=== PATIENT | female | born 1970 | race Caucasian/White ===

== ENCOUNTER 2017-10-25 06:54 | Day surgery (SDC) | payer OTHER ==
[2017-10-25] MEDS: SOD CHLORIDE 0.9% 1,000 ML IV (11:27)
[2017-10-25] MEDS ORDERED: PROPOFOL 20 ML (11:38)
[2017-10-25] MEDS ORDERED: MIDAZOLAM 1 MG/ML 2 ML INJ (11:38)
[2017-10-25] MEDS ORDERED: ONDANSETRON 4 MG INJ (11:38)
[2017-10-25] MEDS ORDERED: METOCLOPRAMIDE 10 MG INJ (11:40)
[2017-10-25] MEDS ORDERED: CEFAZOLIN 1 GM INJ (11:42)
[2017-10-25] MEDS ORDERED: FENTAnyl 50 MCG/ML VIAL (11:42)
[2017-10-25] MEDS ORDERED: DIPHENHYDRAMINE 50 MG INJ IV (12:00)
[2017-10-25] MEDS ORDERED: OXYCODONE/ACETAMINOPHEN (5/325) TAB PO ×2 (12:00)
[2017-10-25] MEDS ORDERED: HYDROmorphONE 1 MG/5 ML IV SYRINGE IV ×2 (12:00)
[2017-10-25] MEDS ORDERED: MEPERIDINE 25 MG INJ IV (12:00)
[2017-10-25] MEDS: BUPIVACAINE 0.25% (MPF) 30 ML INJ (12:13)
[2017-10-25] MEDS ORDERED: IBUPROFEN 800 MG TAB PO (12:30)
[2017-10-25] MEDS: ONDANSETRON 4 MG INJ IV (12:44)
[2017-10-25] MEDS: HYDROmorphONE 1 MG/5 ML IV SYRINGE IV ×2 (12:44→13:00)
== END 2017-10-25 14:00 | disposition home or self-care (01) ==
LOC: SDS 06:54
DX: C81.0 Nodular lymphocyte predominant Hodgkin lymphoma (principal); J45.909 Unspecified asthma, uncomplicated
CPT/HCPCS: 14021; 88307; 88341; 88342

== ENCOUNTER 2017-12-19 07:12 | Day surgery (SDC) | payer OTHER ==
[2017-12-19] MEDS: CEFAZOLIN 1 GM/50 ML (PMX) 50 ML IVPB ×2 (09:38→10:45)
[2017-12-19] MEDS: LIDOCAINE 1% (MPF) 5 ML VIAL (10:20)
[2017-12-19] MEDS: LIDOCAINE 1%/EPI 30 ML INJ (10:30)
[2017-12-19] MEDS: MIDAZOLAM 1 MG/ML 2 ML INJ ×2 (10:30→10:40)
[2017-12-19] MEDS: ONDANSETRON 4 MG INJ (10:30)
[2017-12-19] MEDS: SOD CHLORIDE 0.9% 1,000 ML IV (10:30)
[2017-12-19] MEDS: FENTAnyl 50 MCG/ML VIAL ×3 (10:30→11:50)
[2017-12-19] MEDS: HEPARIN 1000 UNITS/ML 10 ML INJ (11:00)
[2017-12-19] MEDS: POLYMYXIN/BACITRACIN 1L IRRIG IRR (11:30)
== END 2017-12-19 14:55 | disposition home or self-care (01) ==
LOC: SDS 07:12
DX: C81.95 Hodgkin lymphoma, unspecified, lymph nodes of inguinal region and lower limb (principal)
CPT/HCPCS: 36561; 76942; 77012; 88305; 88311; 88313; 93306

== ENCOUNTER 2018-01-25 11:35 | Inpatient (IN) | payer OTHER, MEDICAID ==
[2018-01-25] MEDS: SODIUM CHLORIDE 0.9% 1L BAG IV* (12:30)
[2018-01-25] MEDS: ACETAMINOPHEN 325 MG TAB PO (12:31)
[2018-01-25] MEDS: ONDANSETRON 4 MG INJ IV (12:35)
[2018-01-25 12:39] LABS: WHITE BLOOD COUNT 1.9 10^3/ul (4.8-10.8)
[2018-01-25 12:39] LABS: ABNORMAL IP MESSAGE 1; HEMATOCRIT 35.7 % (37.0-47.0); HEMOGLOBIN 12.1 g/dl (12.0-16.0); MEAN CORPUSCULAR HEMOGLOBIN 28.7 pg (29.0-33.0); MEAN CORPUSCULAR HGB CONC 33.9 g/dl (32.0-37.0); MEAN CORPUSCULAR VOLUME 84.6 fl (82.0-101.0); MEAN PLATELET VOLUME 10.1 fl (7.4-10.4); NUCLEATED RED BLOOD CELLS% 2.1 /100WBC (0.0-0.0); PLATELET COUNT 422 10^3/UL (140-415); RED BLOOD COUNT 4.22 10^6/ul (4.20-5.40); RED CELL DISTRIBUTION WIDTH 12.7 % (11.5-14.5)
[2018-01-25 12:41] LABS: ADD MAN DIFF? YES; POSITIVE DIFF @See below
[2018-01-25 13:00] LABS: ALANINE AMINOTRANSFERASE 143 IU/L (13-69); ALBUMIN 3.2 g/dl (3.3-4.9); ALBUMIN/GLOBULIN RATIO 1.03; ALKALINE PHOSPHATASE 81 IU/L (42-121); ANION GAP 13 (8-16); ASPARTATE AMINO TRANSFERASE 72 IU/L (15-46); BILIRUBIN,INDIRECT 0.5 mg/dl (0-1.1); BILIRUBIN,TOTAL 0.5 mg/dl (0.2-1.3); BLOOD UREA NITROGEN 2 mg/dl (7-20); CALCIUM 8.7 mg/dl (8.4-10.2); CARBON DIOXIDE 28 mmol/L (21-31); CHLORIDE 99 mmol/L (97-110); CREATININE 0.55 mg/dl (0.44-1.00); GLUCOSE 209 mg/dl (70-220); SODIUM 137 mmol/L (135-144); TOTAL PROTEIN 6.3 g/dl (6.1-8.1)
[2018-01-25 13:04] LABS: LACTIC ACID 3.4 mmol/L (0.5-2.0)
[2018-01-25 13:11] LABS: TROPONIN-I < 0.012 ng/ml (0.000-0.120)
[2018-01-25 13:24] LABS: BASOPHILS % (M) 2 % (0-2); EOSINOPHILS % (M) 3 % (0-7); ERYTHROBLAST% (NRBC) (M) 5 % (0-0); GIANT THROMBO% (M) 3 % (0-0); LYMPHOCYTES #M 1.2 10^3/ul (0.8-2.9); LYMPHOCYTES % (M) 65 % (15-51); MONOCYTE #M 0.1 10^3/ul (0.3-0.9); MONOCYTES % (M) 9 % (0-11); OVALOCYTES 1+ (0-0); PLATELET ESTIMATE NORMAL; POIKILOCYTOSIS 1+ (0-0); POLYCHROMASIA 1+ (0-0); REACTIVE LYMPHOCYTES #M 0.3 10^3/ul (0.0-0.0); REACTIVE LYMPHOCYTES% (M) 18 % (0-0); SEGMENTED NEUTROPHILS (M) % 3 % (39-77); SMUDGE%M 16 % (0-0)
[2018-01-25] MEDS: CEFEPIME 2GM/50 ML (PMX) 50 ML IVPB ×2 (13:30→23:56)
[2018-01-25 13:46] LABS: INR 1.05; PROTIME 13.8 Sec (11.9-14.9); PT RATIO 1.1
[2018-01-25 13:47] LABS: PARTIAL THROMBOPLASTIN TIME 26.3 Sec (23.0-35.0)
[2018-01-25 14:15] LABS: LACTIC ACID 2.7 mmol/L (0.5-2.0)
[2018-01-25] MEDS: VANCOMYCIN 1 GM (PMX) 250 ML IVPB (14:30)
[2018-01-25] MEDS ORDERED: HYDROCODONE/APAP (5/325) TAB PO (17:00)
[2018-01-25] MEDS ORDERED: ONDANSETRON 4 MG INJ IV (17:00)
[2018-01-25] MEDS ORDERED: MAGNESIUM HYDROXIDE 30ML CUP PO (17:00)
[2018-01-25] MEDS ORDERED: VANCOMYCIN IV PER PHARMACY XX (17:00)
[2018-01-25] MEDS ORDERED: DOCUSATE SODIUM 100 MG CAP PO (17:00)
[2018-01-25] MEDS ORDERED: NACL 0.9% 3 ML SYG IV (17:00)
[2018-01-25] MEDS ORDERED: morphine 2 MG INJ IV (17:00)
[2018-01-25] MEDS ORDERED: ZOLPIDEM 5 MG TAB PO (17:00)
[2018-01-25] MEDS: POTASSIUM CHLORIDE 40 MEQ in SOD CHLORIDE 0.9% 1,000 ML IV (18:11)
[2018-01-25 19:01] LABS: LACTIC ACID 2.2 mmol/L (0.5-2.0)
[2018-01-25] MEDS: VANCOMYCIN 1.5 GM in SOD CHLORIDE 0.9% 250 ML IVPB (20:25)
[2018-01-25] MEDS: FILGRASTIM 300 MCG INJ SC (21:42)
[2018-01-26] MEDS: POTASSIUM CHLORIDE 40 MEQ in SOD CHLORIDE 0.9% 1,000 ML IV ×4 (00:37→17:32)
[2018-01-26] MEDS: LIDOCAINE 2% VISC 15 ML CUP PO ×2 (02:16→12:03)
[2018-01-26] MEDS: ACETAMINOPHEN 325 MG TAB PO (02:16)
[2018-01-26 05:31] LABS: WHITE BLOOD COUNT 2.5 10^3/ul (4.8-10.8)
[2018-01-26 05:32] LABS: ABNORMAL IP MESSAGE 1; HEMOGLOBIN 10.3 g/dl (12.0-16.0); MEAN CORPUSCULAR HEMOGLOBIN 29.4 pg (29.0-33.0); MEAN CORPUSCULAR HGB CONC 34.3 g/dl (32.0-37.0); MEAN CORPUSCULAR VOLUME 85.7 fl (82.0-101.0); MEAN PLATELET VOLUME 10.1 fl (7.4-10.4); NUCLEATED RED BLOOD CELLS% 4.1 /100WBC (0.0-0.0); PLATELET COUNT 388 10^3/UL (140-415); RED CELL DISTRIBUTION WIDTH 13.3 % (11.5-14.5)
[2018-01-26 05:38] LABS: POSITIVE DIFF @See below
[2018-01-26 05:39] LABS: ADD MAN DIFF? YES
[2018-01-26 05:54] LABS: ANION GAP 9 (8-16); BLOOD UREA NITROGEN 2 mg/dl (7-20); CARBON DIOXIDE 27 mmol/L (21-31); CHLORIDE 105 mmol/L (97-110); CREATININE 0.52 mg/dl (0.44-1.00); GLUCOSE 143 mg/dl (70-220); MAGNESIUM 1.6 mg/dl (1.7-2.5); PHOSPHORUS 2.4 mg/dl (2.5-4.9); POTASSIUM 3.1 mmol/L (3.5-5.1); SODIUM 138 mmol/L (135-144)
[2018-01-26 07:13] LABS: HEMOGLOBIN A1C 6.5 % (0-5.9)
[2018-01-26 07:21] LABS: BASOPHIL #M 0.1 10^3/ul (0.0-0.0); BASOPHILS % (M) 5 % (0-2); EOSINOPHILS % (M) 2 % (0-7); ERYTHROBLAST% (NRBC) (M) 9 % (0-0); LYMPHOCYTES #M 2.2 10^3/ul (0.8-2.9); LYMPHOCYTES % (M) 91 % (15-51); PLATELET ESTIMATE NORMAL; SEGMENTED NEUTROPHILS (M) % 2 % (39-77)
[2018-01-26] MEDS: VANCOMYCIN 1.5 GM in SOD CHLORIDE 0.9% 250 ML IVPB ×2 (09:18→22:23)
[2018-01-26] MEDS: CEFEPIME 2GM/50 ML (PMX) 50 ML IVPB ×2 (09:18→20:49)
[2018-01-26] MEDS: FILGRASTIM 300 MCG INJ SC (17:25)
[2018-01-27] MEDS: ACETAMINOPHEN 325 MG TAB PO (00:27)
[2018-01-27] MEDS: POTASSIUM CHLORIDE 40 MEQ in SOD CHLORIDE 0.9% 1,000 ML IV ×4 (01:00→20:20)
[2018-01-27 08:29] LABS: VANCOMYCIN,TROUGH 9.5 ug/ml (10.0-20.0)
[2018-01-27] MEDS: CEFEPIME 2GM/50 ML (PMX) 50 ML IVPB (09:02)
[2018-01-27] MEDS: VANCOMYCIN 1.5 GM in SOD CHLORIDE 0.9% 250 ML IVPB (09:54)
[2018-01-27 14:15] LABS: WHITE BLOOD COUNT 6.9 10^3/ul (4.8-10.8)
[2018-01-27 14:16] LABS: ABNORMAL IP MESSAGE 1; HEMATOCRIT 33.3 % (37.0-47.0); HEMOGLOBIN 10.9 g/dl (12.0-16.0); MEAN CORPUSCULAR HEMOGLOBIN 28.5 pg (29.0-33.0); MEAN CORPUSCULAR HGB CONC 32.7 g/dl (32.0-37.0); MEAN CORPUSCULAR VOLUME 86.9 fl (82.0-101.0); MEAN PLATELET VOLUME 9.8 fl (7.4-10.4); NUCLEATED RED BLOOD CELLS% 3.5 /100WBC (0.0-0.0); PLATELET COUNT 357 10^3/UL (140-415); RED BLOOD COUNT 3.83 10^6/ul (4.20-5.40)
[2018-01-27 14:21] LABS: ADD MAN DIFF? YES; POSITIVE DIFF @See below
[2018-01-27 14:36] LABS: ANION GAP 7 (8-16); CARBON DIOXIDE 27 mmol/L (21-31); CHLORIDE 107 mmol/L (97-110); CREATININE 0.44 mg/dl (0.44-1.00); GLUCOSE 173 mg/dl (70-220); MAGNESIUM 1.5 mg/dl (1.7-2.5); PHOSPHORUS 1.7 mg/dl (2.5-4.9); POTASSIUM 3.7 mmol/L (3.5-5.1); SODIUM 137 mmol/L (135-144)
[2018-01-27 14:40] LABS: BLOOD UREA NITROGEN < 2 mg/dl (7-20)
[2018-01-27 15:06] LABS: ANISOCYTOSIS 1+ (0-0); BAND NEUTROPHILS #M 1.6 10^3/ul (0.0-0.6); BAND NEUTROPHILS % (M) 24 % (0-4); BASOPHILS % (M) 1 % (0-2); ERYTHROBLAST% (NRBC) (M) 6 % (0-0); LYMPHOCYTES #M 2.6 10^3/ul (0.8-2.9); LYMPHOCYTES % (M) 39 % (15-51); METAMYELOCYTES %M 1 % (0-0); MICROCYTOSIS 1+ (0-0); MONOCYTES % (M) 15 % (0-11); MYELOCYTES #M 0.2 10^3/ul (0.0-0.0); MYELOCYTES % (M) 4 % (0-0); PLATELET ESTIMATE NORMAL; REACTIVE LYMPHOCYTES #M 0.2 10^3/ul (0.0-0.0); REACTIVE LYMPHOCYTES% (M) 3 % (0-0); SEGMENTED NEUTROPHILS (M) % 13 % (39-77); SMUDGE%M 28 % (0-0)
[2018-01-27] MEDS: POTASSIUM PHOSPHATE 40 MEQ in SOD CHLORIDE 0.9% 250 ML IVPB (16:17)
[2018-01-27] MEDS: VANCOMYCIN 1.25 GM in SOD CHLORIDE 0.9% 250 ML IVPB (17:28)
[2018-01-27] MEDS: FILGRASTIM 300 MCG INJ SC (17:37)
[2018-01-27 18:54] LABS: LACTIC ACID 2.3 mmol/L (0.5-2.0)
[2018-01-27] MEDS: MAGNESIUM SULFATE 2 GM/50 ML 50 ML IVPB (20:20)
[2018-01-28 01:18] LABS: LACTIC ACID 2.5 mmol/L (0.5-2.0)
[2018-01-28] MEDS: VANCOMYCIN 1.25 GM in SOD CHLORIDE 0.9% 250 ML IVPB ×3 (02:31→17:04)
[2018-01-28] MEDS: POTASSIUM CHLORIDE 40 MEQ in SOD CHLORIDE 0.9% 1,000 ML IV ×3 (04:04→22:20)
[2018-01-28] MEDS ORDERED: VITAMIN A & D 5 GM OINT PACKET TOP (04:14)
[2018-01-28 05:44] LABS: ABNORMAL IP MESSAGE 1; HEMATOCRIT 32.6 % (37.0-47.0); HEMOGLOBIN 10.7 g/dl (12.0-16.0); MEAN CORPUSCULAR HGB CONC 32.8 g/dl (32.0-37.0); MEAN CORPUSCULAR VOLUME 88.3 fl (82.0-101.0); MEAN PLATELET VOLUME 10.1 fl (7.4-10.4); PLATELET COUNT 346 10^3/UL (140-415); RED BLOOD COUNT 3.69 10^6/ul (4.20-5.40); RED CELL DISTRIBUTION WIDTH 14.3 % (11.5-14.5)
[2018-01-28 05:44] LABS: WHITE BLOOD COUNT 15.3 10^3/ul (4.8-10.8)
[2018-01-28 06:01] LABS: ANION GAP 9 (8-16); CALCIUM 7.9 mg/dl (8.4-10.2); CARBON DIOXIDE 26 mmol/L (21-31); CHLORIDE 107 mmol/L (97-110); CREATININE 0.45 mg/dl (0.44-1.00); GLUCOSE 114 mg/dl (70-220); POTASSIUM 3.8 mmol/L (3.5-5.1); SODIUM 138 mmol/L (135-144)
[2018-01-28 06:02] LABS: POSITIVE DIFF @See below
[2018-01-28 06:02] LABS: PHOSPHORUS 2.6 mg/dl (2.5-4.9)
[2018-01-28 06:03] LABS: ADD MAN DIFF? YES; BLOOD UREA NITROGEN < 2 mg/dl (7-20)
[2018-01-28 06:06] LABS: LACTIC ACID 3.1 mmol/L (0.5-2.0)
[2018-01-28 07:42] LABS: ANISOCYTOSIS 1+ (0-0); BAND NEUTROPHILS #M 4.8 10^3/ul (0.0-0.6); BAND NEUTROPHILS % (M) 32 % (0-4); ERYTHROBLAST% (NRBC) (M) 5 % (0-0); GIANT THROMBO% (M) 1 % (0-0); LYMPHOCYTES % (M) 20 % (15-51); METAMYELOCYTES #M 0.7 10^3/ul (0.0-0.0); METAMYELOCYTES %M 5 % (0-0); MONOCYTE #M 1.2 10^3/ul (0.3-0.9); MONOCYTES % (M) 8 % (0-11); MYELOCYTES #M 0.6 10^3/ul (0.0-0.0); MYELOCYTES % (M) 4 % (0-0); PLATELET ESTIMATE NORMAL; POIKILOCYTOSIS 1+ (0-0); PROMYELOCYTES #M 0.3 10^3/ul (0-0); PROMYELOCYTES % (M) 2 % (0-0); SEG NEUT #M 5.2 10^3/ul (1.6-7.5); SEGMENTED NEUTROPHILS (M) % 29 % (39-77); SMUDGE%M 20 % (0-0)
[2018-01-28] MEDS: CEFEPIME 2GM/50 ML (PMX) 50 ML IVPB ×3 (09:26→20:20)
[2018-01-28 13:15] LABS: LACTIC ACID 3.1 mmol/L (0.5-2.0)
[2018-01-28 14:36] LABS: ADD UMIC YES; UR ASCORBIC ACID NEGATIVE (NEGATIVE); UR BILIRUBIN (Dip) NEGATIVE (NEGATIVE); UR BLOOD (Dip) NEGATIVE (NEGATIVE); UR CLARITY SLIGHTLY CLOUDY (CLEAR); UR COLOR STRAW (YELLOW); UR GLUCOSE (Dip) NEGATIVE (NEGATIVE); UR KETONES (Dip) NEGATIVE (NEGATIVE); UR LEUKOCYTE ESTERASE (Dip) TRACE Leu/ul (NEGATIVE); UR NITRITE (Dip) NEGATIVE (NEGATIVE); UR RBC 0 /HPF (0-5); UR SPECIFIC GRAVITY (Dip) 1.006 (1.003-1.030); UR TOTAL PROTEIN (Dip) NEGATIVE (NEGATIVE); UR UROBILINOGEN (Dip) NEGATIVE (NEGATIVE); UR WBC 3 /HPF (0-5)
[2018-01-28 18:03] LABS: VANCOMYCIN,TROUGH 10.7 ug/ml (10.0-20.0)
[2018-01-28 18:16] LABS: LACTIC ACID 2.3 mmol/L (0.5-2.0)
[2018-01-28] MEDS ORDERED: morphine LIQ (10 MG/5 ML) CUP PO (21:00)
[2018-01-29] MEDS ORDERED: VANCOMYCIN 1.5 GM in SOD CHLORIDE 0.9% 250 ML IVPB
[2018-01-29 06:19] LABS: WHITE BLOOD COUNT 18.8 10^3/ul (4.8-10.8)
[2018-01-29 06:19] LABS: ABNORMAL IP MESSAGE 1; HEMOGLOBIN 10.2 g/dl (12.0-16.0); MEAN CORPUSCULAR HEMOGLOBIN 29.3 pg (29.0-33.0); MEAN CORPUSCULAR HGB CONC 32.9 g/dl (32.0-37.0); MEAN CORPUSCULAR VOLUME 89.1 fl (82.0-101.0); MEAN PLATELET VOLUME 10.3 fl (7.4-10.4); NUCLEATED RED BLOOD CELLS% 1.1 /100WBC (0.0-0.0); PLATELET COUNT 258 10^3/UL (140-415); RED BLOOD COUNT 3.48 10^6/ul (4.20-5.40); RED CELL DISTRIBUTION WIDTH 14.7 % (11.5-14.5)
[2018-01-29 06:36] LABS: ADD MAN DIFF? YES; POSITIVE DIFF @See below
[2018-01-29] MEDS: POTASSIUM CHLORIDE 40 MEQ in SOD CHLORIDE 0.9% 1,000 ML IV (06:41)
[2018-01-29 06:53] LABS: ANION GAP 7 (8-16); CALCIUM 7.8 mg/dl (8.4-10.2); CARBON DIOXIDE 25 mmol/L (21-31); CHLORIDE 111 mmol/L (97-110); CREATININE 0.47 mg/dl (0.44-1.00); GLUCOSE 108 mg/dl (70-220); POTASSIUM 4.1 mmol/L (3.5-5.1); SODIUM 139 mmol/L (135-144)
[2018-01-29 06:57] LABS: BLOOD UREA NITROGEN < 2 mg/dl (7-20)
[2018-01-29] MEDS: CEFEPIME 2GM/50 ML (PMX) 50 ML IVPB (09:03)
[2018-01-29 09:26] LABS: BAND NEUTROPHILS #M 5.8 10^3/ul (0.0-0.6); BAND NEUTROPHILS % (M) 31 % (0-4); LYMPHOCYTES #M 2.6 10^3/ul (0.8-2.9); LYMPHOCYTES % (M) 14 % (15-51); METAMYELOCYTES #M 0.9 10^3/ul (0.0-0.0); METAMYELOCYTES %M 5 % (0-0); MONOCYTE #M 0.9 10^3/ul (0.3-0.9); MONOCYTES % (M) 5 % (0-11); MYELOCYTES #M 1.6 10^3/ul (0.0-0.0); MYELOCYTES % (M) 9 % (0-0); PLATELET ESTIMATE NORMAL; PROMYELOCYTES #M 0.3 10^3/ul (0-0); PROMYELOCYTES % (M) 2 % (0-0); REACTIVE LYMPHOCYTES #M 0.5 10^3/ul (0.0-0.0); REACTIVE LYMPHOCYTES% (M) 3 % (0-0); SEG NEUT #M 6.9 10^3/ul (1.6-7.5); SEGMENTED NEUTROPHILS (M) % 31 % (39-77); SMUDGE%M 7 % (0-0)
[2018-01-29] MEDS: VANCOMYCIN 1.5 GM in SOD CHLORIDE 0.9% 250 ML IVPB (09:48)
[2018-01-29] MEDS: HEPARIN (100 UNITS/ML) 5 ML SYG CATHETER (13:12)
== END 2018-01-29 13:50 | disposition home or self-care (01) | DRG 809 ==
LOC: E/R 11:35 → MS1 14:33
DX: D70.9 Neutropenia, unspecified (principal); E87.0 Hyperosmolality and hypernatremia; C81.90 Hodgkin lymphoma, unspecified, unspecified site; K52.1 Toxic gastroenteritis and colitis; E87.2 Acidosis; N39.0 Urinary tract infection, site not specified; R50.81 Fever presenting with conditions classified elsewhere; E87.6 Hypokalemia; E86.0 Dehydration; T45.1X5A Adverse effect of antineoplastic and immunosuppressive drugs, initial encounter; K12.32 Oral mucositis (ulcerative) due to other drugs; R13.10 Dysphagia, unspecified
CPT/HCPCS: 36415; 71045; 80048; 80053; 80202; 81001; 83036; 83605; 83735; 84100; 84484; 85025; 85610; 85730; 87040; 87045; 87086; 93005; 96361; 96365; 96375; 99291-25